=== PATIENT | male | born 1990 | race Caucasian/White ===

== ENCOUNTER 2020-12-20 16:19 | Emergency (ER) | payer BC, MEDICAID ==
[2020-12-20] MEDS ORDERED: Bacitracin Oint 1 GM U/D Packet TOP ONE (19:56)
--- NOTE | 2020-12-20 20:07 | EDM.PDOC ---
ED HPI GENERAL MEDICAL PROBLEM - General Chief Complaint: Laceration Stated Complaint: CUT ON LEFT MIDDLE FINGER Time Seen by Provider: 12/20/20 19:55 Source of Information: Reports: Patient History Limitations: Reports: No Limitations - History of Present Illness INITIAL COMMENTS - FREE TEXT/NARRATIVE: Is a 30-year-old male presenting to the ED for evaluation of a laceration to the tip of his left third finger when he incised it cutting open a box with a utility knife. Injury occurred around 1600 hrs. The patient's last tetanus was in 2017. He has intact distal neurovascular. 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: Reports: Home Treatments Left Finger-Middle Pain Score (Numeric/FACES): 1 - Related Data Allergies Allergy/AdvReac Type Severity Reaction Status Date / Time amoxicillin Allergy Rash Verified 12/20/20 19:01 Home Meds: Home Meds NK [No Known Home Meds] 12/20/20 [History] Past Medical History - Past Health History Medical/Surgical History: Denies Medical/Surgical History Social & Family History - Tobacco Use Tobacco Use Status *Q: Current Every Day Tobacco User Years of Tobacco use: 1 Packs/Tins Daily: 0.5 Second Hand Smoke Exposure: No - Caffeine Use Caffeine Use: Reports: Coffee - Recreational Drug Use Recreational Drug Use: No ED ROS GENERAL - Review of Systems Review Of Systems: See Below Constitutional: Reports: No Symptoms HEENT: Reports: No Symptoms Respiratory: Reports: No Symptoms Cardiovascular: Reports: No Symptoms Endocrine: Reports: No Symptoms GI/Abdominal: Reports: No Symptoms : Reports: No Symptoms Musculoskeletal: Reports: Other (Laceration of the tip of the left third finger) Skin: Reports: Wound (Laceration of the tip of the left third finger) Neurological: Reports: No Symptoms Psychiatric: Reports: No Symptoms Hematologic/Lymphatic: Reports: No Symptoms ED EXAM, SKIN/RASH Exam: See Below Exam Limited By: No Limitations General Appearance: Alert, No Apparent Distress Extremities: Other (0.9 cm laceration on the tip of the third finger that does gap. Nailbed is spared. There is no foreign body. Distal motion is intact. Distal sensation is intact. Good capillary refill.) Neurological: Alert, Oriented, Normal Cognition, No Motor/Sensory Deficits Psychiatric: Normal Affect Skin: Warm, Dry, Wound/Incision (1.9 cm laceration left third finger) Location, Skin: Upper Extremity, Left ED SKIN PROCEDURES - Laceration/Wound Repair Left Distal Digit - 3rd (Middle) Appearance: Subcutaneous Distal NVT: Neuro & Vascular Intact Anesthetic Type: Local Local Anesthesia - Lidocaine (Xylocaine): 1% Plain Local Anesthetic Volume: 2cc Skin Prep: Saline Exploration/Debridement/Repair: Wound Explored, In a Bloodless Field Closed with: Sutures Lac/Wound length In cm: 1.9 Suture Size: 4-0 # of Sutures: 3 Suture Type: Silk, Interrupted Sterile Dressing Applied: Provider Tetanus Status Addressed: Yes Complications: No Course - Vital Signs Last Recorded V/S: Last Vital Signs Temp 36.2 C 12/20/20 19:22 Pulse 80 12/20/20 19:22 Resp 18 12/20/20 19:22 BP 125/93 H 12/20/20 19:22 Pulse Ox 99 12/20/20 19:22 - Orders/Labs/Meds Meds: Medications Discontinued Medications Generic Name Dose Route Start Last Admin Trade Name Freq PRN Reason Stop Dose Admin Bacitracin 1 dose 12/20/20 19:56 12/20/20 20:16 Bacitracin Oint 1 Gm U/D Packet TOP 12/20/20 19:57 1 dose ONETIME ONE Administration Lidocaine HCl 5 ml 12/20/20 19:56 12/20/20 20:17 Lidocaine 1% 5 Ml Sdv INJECT 12/20/20 19:57 5 ml ONETIME ONE Administration Departure - Departure Time of Disposition: 20:26 Disposition: Home, Self-Care 01 Clinical Impression: Laceration of finger Qualifiers: Encounter type: initial encounter Finger: middle finger Damage to nail status: without damage Foreign body presence: without foreign body Laterality: left Qualified Code(s): S61.213A - Laceration without foreign body of left middle finger without damage to nail, initial encounter - Discharge Information Referrals: PCP,None [Primary Care Provider] - Forms: ED Department Discharge Care Plan Goals: Please keep the wound clean and dry for the next 24 hours. You may apply a light coating of bacitracin and a new dressing twice daily. The sutures will need to be removed in 7 days. This may be done in the neck or in the ED. For signs of infection. Should any signs be seen return for initiation of antibiotics. Sepsis Event Note (ED) - Evaluation Sepsis Screening Result: No Definite Risk - Focused Exam Vital Signs: Vital Signs Temp Pulse Resp BP Pulse Ox 12/20/20 19:22 36.2 C 80 18 125/93 H 99 12/20/20 19:04 36.2 C 18 125/93 H 99 - Problem List & Annotations (1) Laceration of finger SNOMED Code(s): 949427418 Code(s): S61.219A - LACERATION W/O FB OF UNSP FINGER W/O DAMAGE TO NAIL, INIT Status: Acute Priority: Medium Current Visit: Yes Qualifiers: Encounter type: initial encounter Finger: middle finger Damage to nail status: without damage Foreign body presence: without foreign body Laterality: left Qualified Code(s): S61.213A - Laceration without foreign body of left middle finger without damage to nail, initial encounter - Problem List Review Problem List Initiated/Reviewed/Updated: Yes
== END 2020-12-20 20:45 | disposition home or self-care (01) ==
LOC: JP.ED 16:19
DX: S61.213A Laceration without foreign body of left middle finger without damage to nail, initial encounter (principal); Z88.0 Allergy status to penicillin; Z72.0 Tobacco use; W27.8XXA Contact with other nonpowered hand tool, initial encounter
CPT/HCPCS: 12001; 99282-25